=== PATIENT | female | born 1995 | race Caucasian/White ===

== ENCOUNTER → 2018-02-25 | Outpatient (CLI) | payer OTHER ==
[~2018-02-25] MED LIST: AMOX250S5 PO; BCP PO; DEXAINTSOL PO; HYDR15SO8 PO; HYDR1TAB PO; MTF500T PO; TETRACAINESUCKERS MT; [UNRECOGNIZED DRUG - OTHER]; [UNRECOGNIZED DRUG - OTHER]
--- NOTE | 2018-02-25 10:07 | Diagnostic Imaging Report ---
PROCEDURE: US Gallbladder. TECHNIQUE: Multiple real-time grayscale images were obtained over the right upper quadrant in various projections. INDICATION: Abdominal pain. COMPARISON: None FINDINGS: The liver appears unremarkable. There is no focal hepatic mass. No biliary dilatation. Common bile duct measures about 3 mm. Doppler imaging demonstrates normal hepatopetal flow in the main portal vein. Gallbladder and pancreas appear unremarkable. The right kidney measures 10.5 cm in length and appears normal. There is no ascites or sonographic Purvis's sign. IMPRESSION: No acute abnormality is demonstrated. Dictated by: Dictated on workstation # [id number]
== END ==
LOC: RAD 07:37
PROVIDERS: ATTEND Nurse Practitioner Family
DX: R10.9 Unspecified abdominal pain (principal); R13.10 Dysphagia, unspecified
CPT/HCPCS: 76705

== ENCOUNTER → 2018-03-03 | Outpatient (CLI) | payer OTHER ==
[~2018-03-03] MED LIST changes: +CATHETER FLUSH 10 ML SYR IV PRN
--- NOTE | 2018-03-03 12:24 | Diagnostic Imaging Report ---
CLINICAL INDICATION: Patient with right upper quadrant pain. COMPARISON: Gallbladder ultrasound dated 02/25/2018. PROCEDURE: The patient was administered 5.08 millicuries of technetium 99m Choletec. After 60 minutes of the images, one can of Ensure was drink followed by another 60 minutes of imaging. A nuclear medicine hepatobiliary scan with ejection fraction was performed. FINDINGS: There is prompt uptake and excretion of radiotracer by the liver. Activity is visible in the gallbladder by 60 minutes and the small bowel by 10 minutes. Ejection fraction of the gallbladder is calculated at 37% (normal >35%). The gallbladder visibly empties on the scans following the ingestion of Ensure. IMPRESSION: Normal hepatobiliary scan with normal gallbladder ejection fraction. Dictated by: Dictated on workstation # [id number]
== END ==
LOC: CARD 09:28
PROVIDERS: ATTEND Nurse Practitioner Family
DX: R10.11 Right upper quadrant pain (principal)
CPT/HCPCS: 78227

== ENCOUNTER 2019-08-30 09:26 | Emergency (ER) | payer BC, OTHER ==
[~2019-08-30] VITALS: Ht 152.4 cm; Wt 61.4 kg
[~2019-08-30 09:26] MED LIST changes: -CATHETER FLUSH 10 ML SYR IV PRN
--- NOTE | 2019-08-30 09:30 | NUR ---
Pt to triage room. Pt very anxious. 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 Pts vss. BP:156/91, HR:86, RR:30, o2 sat:98%, Temp:36.4. Pt states that she is very happy with the vital signs except her bp is extremely high for her.
[2019-08-30] MEDS ORDERED: ANTACID SUSP 30 ML UDC (MYLANTA) PO ONE (10:00)
[2019-08-30] MEDS ORDERED: ONDANSETRON 4 MG/2 ML (SDV) Z0FRAN IVP ONE (10:00)
[2019-08-30] MEDS ORDERED: LIDOCAINE 2% VISCOUS 15 ML UDC PO ONE (10:00)
[2019-08-30 10:03] LABS: BASOPHILS % (AUTO) 0 % (0-10); EOSINOPHILS # (AUTO) 0.4 10^3/uL (0.0-0.3); EOSINOPHILS % (AUTO) 5 % (0-10); HEMATOCRIT 39 % (35-52); HEMOGLOBIN 13.3 G/DL (11.5-16.0); LYMPHOCYTES % (AUTO) 35 % (12-44); MEAN CORPUSCULAR HEMOGLOBIN 29 PG (25-34); MEAN CORPUSCULAR HGB CONC 34 G/DL (32-36); MEAN CORPUSCULAR VOLUME 84 FL (80-99); MEAN PLATELET VOLUME 9.6 FL (7.4-10.4); MONOCYTES # (AUTO) 0.9 X 10^3 (0.0-1.0); MONOCYTES % (AUTO) 10 % (0-12); NEUTROPHILS # (AUTO) 4.2 X 10^3 (1.8-7.8); NEUTROPHILS % (AUTO) 49 % (42-75); PLATELET COUNT 313 10^3/uL (130-400); RED CELL DISTRIBUTION WIDTH 12.9 % (10.0-14.5); WHITE BLOOD COUNT 8.5 10^3/uL (4.3-11.0)
[2019-08-30 10:20] LABS: PROTHROMBIN TIME PATIENT 13.2 SEC (12.2-14.7)
--- NOTE | 2019-08-30 10:22 | Diagnostic Imaging Report ---
INDICATION: Chest pain. TIME OF EXAM: 10:16 a.m. COMPARISON: No prior studies are available for comparison. FINDINGS: The heart size is normal. The pulmonary vascularity is unremarkable. The lungs are clear. No infiltrate, effusion or pneumothorax is detected. IMPRESSION: No acute cardiopulmonary process is detected. Dictated by: Dictated on workstation # [id number]
[2019-08-30 10:27] LABS: ALANINE AMINOTRANSFERASE 44 U/L (0-55); ALBUMIN 4.3 GM/DL (3.2-4.5); ALKALINE PHOSPHATASE 75 U/L (40-136); BILIRUBIN,TOTAL 0.3 MG/DL (0.1-1.0); BUN/CREATININE RATIO 13; CALCIUM 9.2 MG/DL (8.5-10.1); CARBON DIOXIDE 21 MMOL/L (21-32); CHLORIDE 105 MMOL/L (98-107); CREATININE SERUM 0.79 MG/DL (0.60-1.30); GFR ESTIMATED > 60; GLUCOSE 113 MG/DL (70-105); MAGNESIUM 1.7 MG/DL (1.6-2.4); POTASSIUM 3.4 MMOL/L (3.6-5.0); SODIUM 138 MMOL/L (135-145); TOTAL PROTEIN 7.2 GM/DL (6.4-8.2)
[2019-08-30 10:28] LABS: LIPASE 26 U/L (8-78)
--- NOTE | 2019-08-30 12:31 | ED Chest Pain ---
General Chief Complaint: Chest Pain Stated Complaint: CHEST PAIN Nursing Triage Note: PT TO RM 10 WITH COMPLAINTS OF CHEST PAIN. STATES PAIN STARTED AROUND 0900. STATES PRIOR TO TOOK ALEVE FOR A HEADACHE. STATES PAIN WORSENS WHENEVER SHE STANDS UP. PAIN RADIATES FROM MIDDLE TO LEFT SIDE. PAIN IS REPRODUCABLE Nursing Sepsis Screen: No Definite Risk Source: patient Exam Limitations: no limitations History of Present Illness Date Seen by Provider: Aug 30, 2019 Time Seen by Provider: 11:40 Initial Comments 23-year-old female who presents to emergency room with complaints of chest pain that started around 9 AM this morning. She reports she also had a headache she states that she took Aleve around this time has helped minimally. She denies nausea, vomiting, shortness of breath, dizziness. She does state the pain is worse in the middle of her chest and is reproducible with pushing her chest. Allergies and Home Medications Allergies Coded Allergies: azithromycin (Verified Allergy, Unknown, 02/25/13) prednisone (Verified Allergy, Unknown, 02/25/13) Home Medications Amoxicillin 250 Mg/5 Ml Susp, 2 TSP PO BID Prescribed by: SHRUTI WALL on 07/27/15955 Dexamethasone 1 Mg/1 Ml Angeline, 2 TSP PO DAILY PRN for PAIN Mix 4MG/2.5CC water Prescribed by: SHRUTI WALL on 07/27/15955 Hydrocodone/Acetaminophen 15 Ml Solution, 2-3 TSP PO PRN Prescribed by: SHRUTI WALL on 07/27/15955 Metformin Hcl 500 Mg Tablet, 500 MG PO DAILY, (Reported) Tetracaine Sucker Ea, 1 EA MT UD PRN for PAIN Tetracain Suckers These suckers are custom made and require a prescription. Moisten the sucker first and then suck on it gently as far back in the mouth as possible for 2-3 days. You can repeadt it in about an hour. This will take the edge off but not completely numb the throat. 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 oz. [id number]; 26.00 BMI Method:Stated Progress/Results/Core Measures Results/Orders Lab Results Laboratory Tests Test 08/30/19 09:52 08/30/19 12:23 Range/Units White Blood Count 8.5 4.3-11.0 10^3/uL Red Blood Count 4.61 4.35-5.85 10^6/uL Hemoglobin 13.3 11.5-16.0 G/DL Hematocrit 39 35-52 % Mean Corpuscular Volume 84 80-99 FL Mean Corpuscular Hemoglobin 29 25-34 PG Mean Corpuscular Hemoglobin Concent 34 32-36 G/DL Red Cell Distribution Width 12.9 10.0-14.5 % Platelet Count 313 130-400 10^3/uL Mean Platelet Volume 9.6 7.4-10.4 FL Neutrophils (%) (Auto) 49 42-75 % Lymphocytes (%) (Auto) 35 12-44 % Monocytes (%) (Auto) 10 0-12 % Eosinophils (%) (Auto) 5 0-10 % Basophils (%) (Auto) 0 0-10 % Neutrophils # (Auto) 4.2 1.8-7.8 X 10^3 Lymphocytes # (Auto) 3.0 1.0-4.0 X 10^3 Monocytes # (Auto) 0.9 0.0-1.0 X 10^3 Eosinophils # (Auto) 0.4 H 0.0-0.3 10^3/uL Basophils # (Auto) 0.0 0.0-0.1 10^3/uL Prothrombin Time 13.2 12.2-14.7 SEC INR Comment 1.0 0.8-1.4 Activated Partial Thromboplast Time 27 24-35 SEC D-Dimer 0.42 0.00-0.49 UG/ML Sodium Level 138 135-145 MMOL/L Potassium Level 3.4 L 3.6-5.0 MMOL/L Chloride Level 105 98-107 MMOL/L Carbon Dioxide Level 21 21-32 MMOL/L Anion Gap 12 5-14 MMOL/L Blood Urea Nitrogen 10 7-18 MG/DL Creatinine 0.79 0.60-1.30 MG/DL Estimat Glomerular Filtration Rate > 60 BUN/Creatinine Ratio 13 Glucose Level 113 H 70-105 MG/DL Calcium Level 9.2 8.5-10.1 MG/DL Corrected Calcium 9.0 8.5-10.1 MG/DL Magnesium Level 1.7 1.6-2.4 MG/DL Total Bilirubin 0.3 0.1-1.0 MG/DL Aspartate Amino Transf (AST/SGOT) 53 H 5-34 U/L Alanine Aminotransferase (ALT/SGPT) 44 0-55 U/L Alkaline Phosphatase 75 40-136 U/L Myoglobin 15.7 10.0-92.0 NG/ML Troponin I < 0.028 <0.028 NG/ML Total Protein 7.2 6.4-8.2 GM/DL Albumin 4.3 3.2-4.5 GM/DL Lipase 26 8-78 U/L My Orders Orders - MADI BERRY Fibrin Degradation Products (08/30/19 11:45) Troponin I (08/30/19 12:09) Medications Given in ED Current Medications Medications Dose Ordered Sig/Alex Route Start Time Stop Time Status Last Admin Dose Admin Al Hydrox/Mg Hydrox/Simethicone 30 ml ONCE ONCE PO 08/30/19 10:00 08/30/19 10:01 DC 08/30/19 10:07 30 ML Lidocaine HCl 15 ml ONCE ONCE PO 08/30/19 10:00 08/30/19 10:01 DC 08/30/19 10:08 15 ML Vital Signs/I&O 08/30/19 08/30/19 09:37 09:37 Temp 36.8 Pulse 69 Resp 24 B/P (MAP) 139/90 (106) Pulse Ox 100 O2 Delivery Room Air Room Air Blood Pressure Mean: 106 Departure Impression Primary Impression: Pleuritic chest pain Disposition: HOME, SELF-CARE Condition: Stable/Unchanged Departure-Patient Inst. Decision time for Depature: 12:30 Referrals: NEENA GOULD DO (PCP/Family) Primary Care Physician Patient Instructions: Pleuritic Chest Pain Add. Discharge Instructions: You may use Tylenol and ibuprofen as needed for pain. Drink plenty of fluids stay hydrated. Follow-up with primary care provider within 1 week for recheck. Return back to the emergency room for worsening symptoms or concerns as needed. All discharge instructions reviewed with patient and/or family. Voiced understanding. MADI BERRY Aug 30, 2019 12:31
[2019-08-30 13:16] VITALS: BP 126/50
== END 2019-08-30 13:16 | disposition home or self-care (01) ==
LOC: EDUNIT# 09:26 → ER 09:28
DX: R07.81 Pleurodynia (principal); E11.9 Type 2 diabetes mellitus without complications; Z88.1 Allergy status to other antibiotic agents; Z88.8 Allergy status to other drugs, medicaments and biological substances; Z79.84 Long term (current) use of oral hypoglycemic drugs; Z90.89 Acquired absence of other organs
CPT/HCPCS: 36415; 71045; 80053; 83690; 83735; 83874; 84484; 85025; 85379; 85610; 85730; 93005; 93041